=== PATIENT | male | born 1955 | race Caucasian/White ===

== ENCOUNTER 2018-10-07 13:55 | Emergency (ER) | payer SELFPAY ==
[~2018-10-07] VITALS: Ht 175.3 cm; Wt 64.1 kg
[2018-10-07] MEDS ORDERED: AMLO25TA PO (14:06)
[2018-10-07] MEDS ORDERED: NS 1,000 ML IV SCH (15:14)
[2018-10-07] MEDS ORDERED: ONDANSETRON 4MG/2ML VIAL (J2405) IV ONE (15:15)
[2018-10-07] MEDS ORDERED: KETOROLAC 30 MG/ML VIAL (J1885) IV ONE (15:15)
[2018-10-07 15:53] LABS: BASO # 0.1 10^3/uL (0.0-0.2); BASO % 0.6 % (0.0-1.0); EOS % 0.5 % (0.0-3.0); HEMATOCRIT 46.6 % (42.0-52.0); HEMOGLOBIN 15.8 g/dl (13.5-17.5); LYMPH # 1.3 10^3/uL (1.5-4.5); LYMPH % 14.7 % (24.0-44.0); MEAN CORPUSCULAR HEMOGLOBIN 33.1 pg (27.0-33.0); MEAN CORPUSCULAR HGB CONC 33.9 g/dl (32.0-36.5); MEAN CORPUSCULAR VOLUME 97.7 fl (80.0-96.0); MONO # 0.9 10^3/uL (0.0-0.8); MONO % 10.5 % (0.0-5.0); NEUTROPHILS # 6.5 10^3/uL (1.8-7.7); NEUTROPHILS % 73.5 % (36.0-66.0); PLATELET COUNT, AUTOMATED 280 10^3/uL (150-450); RED BLOOD COUNT 4.77 10^6/uL (4.30-6.10); WHITE BLOOD COUNT 8.9 10^3/uL (4.0-10.0)
[2018-10-07 16:07] LABS: INR 0.95; PROTHROMBIN TIME 12.8 SECONDS (12.1-14.4)
[2018-10-07 16:41] LABS: ALBUMIN 3.9 GM/DL (3.2-5.2); ALT/SGPT 28 U/L (12-78); AMYLASE 80 U/L (25-115); BILIRUBIN,DIRECT < 0.1 MG/DL (0.0-0.2); BILIRUBIN,TOTAL 0.5 MG/DL (0.2-1.0); BLOOD UREA NITROGEN 7 MG/DL (7-18); CALCIUM LEVEL 9.3 MG/DL (8.8-10.2); CARBON DIOXIDE LEVEL 25 MEQ/L (21-32); CHLORIDE LEVEL 105 MEQ/L (98-107); CREATININE FOR GFR 0.85 MG/DL (0.70-1.30); GLOMERULAR FILTRATION RATE > 60.0 (>49); GLUCOSE, FASTING 84 MG/DL (70-100); LIPASE 119 U/L (73-393); POTASSIUM SERUM 4.1 MEQ/L (3.5-5.1); SODIUM LEVEL 139 MEQ/L (136-145); TOTAL PROTEIN 7.8 GM/DL (6.4-8.2)
--- NOTE | 2018-10-07 16:52 | REP ---
REASON: Flank pain. COMPARISON: None. The lung bases are clear. Limited evaluation of the solid intraabdominal organs and gallbladder showed no gross abnormalities. Limited evaluation of the pancreas and adrenal glands showed no gross abnormalities. In the right kidney there is a 4 mm sized calculus which is not causing obstructive phenomenon. There are no left nephroliths. There is no ureterolithiasis, hydronephrosis or hydronephrosis or hydroureter. There are no urinary bladder calcifications. There is corpora amylacea. Limited evaluation of the intraabdominal and intrapelvic bowel loops and their mesenteries showed no gross abnormalities. There is no free fluid or free air in the abdomen or pelvis. The appendix is well visualized and is unremarkable. Bone window technique throughout the exam shows the osseous structures to be within normal limits for the patient's age. IMPRESSION:Single small nonobstructing right nephrolith as described above. Electronically Signed by Ashok Perales DO 10/07/2018 05:41 P
[2018-10-07] MEDS ORDERED: ZOFR4TAB16 PO (18:55)
[2018-10-07] MEDS ORDERED: NAPR-837 PO (18:55)
[2018-10-07 19:08] VITALS: BP 142/81
--- NOTE | 2018-10-07 19:39 | REPVR ---
EXAM: US Abdomen Limited, Right Upper Quadrant EXAM DATE/TIME: 10/07/2018 6:35 PM CLINICAL HISTORY: 62 years old, male; Abdominal pain; Acute; Additional info: Ruq pain TECHNIQUE: Imaging protocol: Real-time ultrasound of the abdomen with image documentation. Examination was focused on the right upper quadrant. COMPARISON: CT ABD PELVIS W/O CONTRAST 10/07/2018 3:25 PM FINDINGS: Liver: Mild increased echogenicity. No masses. Gallbladder: Normal. No gallstones. There is no gallbladder wall thickening. Common bile duct: Normal. No stones. No dilation. Pancreas: Visualized pancreas is unremarkable. Right kidney: Unremarkable. No mass. No hydronephrosis. IMPRESSION: 1. No acute findings. 2. Hepatic steatosis. Electronically signed by: Rosa Wise On 10/07/2018 19:38:52 PM
== END 2018-10-07 19:10 | disposition home or self-care (01) ==
LOC: M ED 13:55
DX: R10.9 Unspecified abdominal pain (principal); K76.0 Fatty (change of) liver, not elsewhere classified; N20.0 Calculus of kidney; I51.9 Heart disease, unspecified; I10 Essential (primary) hypertension; Z72.0 Tobacco use; Z79.899 Other long term (current) drug therapy
CPT/HCPCS: 74176; 76705; 80048; 80076; 81001; 82150; 83690; 85025; 85610; 96374; 96375; 99284; J1885; J2405